=== PATIENT | female | born 1935 | race Two or more races ===

== ENCOUNTER 2017-05-09 08:54 | Emergency (ER) | payer OTHER, MEDICARE ==
[2017-05-09 09:11] VITALS: BP 127/64; PULSE 92; TEMP 98; BMI 21.2
--- NOTE | 2017-05-09 09:47 | PDOC ---
History of Present Illness - General Chief Complaint: Pain Stated Complaint: FOOT INJURY Time Seen by Provider: 05/09/17 09:27 History Source: Patient Exam Limitations: No Limitations - History of Present Illness Initial Comments: 05/09/17 10:20 was walking and tripoped/ inverted right ankle 4 days ago. Has used tylenol and frank wrap, but has persistent tenderness and ecchymoses. Has fractured that ankle with an ORIF 7 years ago. Denies numbness or tingling to foot or any other injury. 05/09/17 16:22 Occurred: reports: other (4 days ago) Severity: reports: mild Pain Location: reports: lower extremity (right ankle ) Method of Injury: Yes: fall Modifying Factors: improves with: cold therapy, pain medication Associated Symptoms (Fall): denies symptoms Past History - Travel Traveled outside of the country in the last 30 days: No Close contact w/someone who was outside of country & ill: No - Past Medical History Allergies/Adverse Reactions: Allergies Allergy/AdvReac Type Severity Reaction Status Date / Time Sulfa (Sulfonamide Allergy Mild Hives Verified 05/09/17 09:05 Antibiotics) Home Medications: Ambulatory Orders NK [No Known Home Medication] 05/09/17 Seizures: Yes Thyroid Disease: Yes - Surgical History Lung Surgery: Yes (lt breast) - Suicide/Smoking/Psychosocial Hx Smoking History: Former smoker Have you smoked in the past 12 months: No If you are a former smoker, when did you quit?: 65yrs Information on smoking cessation initiated: No Hx Alcohol Use: Yes (socially) Drug/Substance Use Hx: No Review of Systems - Review of Systems Able to Perform ROS?: Yes Is the patient limited [place] proficient: Yes Constitutional: Yes: See HPI. No: Symptoms Reported HEENTM: No: Symptoms Reported Respiratory: No: Symptoms reported Musculoskeletal: Yes: Symptoms Reported, See HPI, Joint Pain, Joint Swelling Integumentary: Yes: See HPI, Bruising Neurological: Yes: See HPI. No: Symptoms reported All Other Systems: Reviewed and Negative *Physical Exam - Vital Signs Last Vital Signs Temp Pulse Resp BP Pulse Ox 98 F 92 H 16 127/64 100 05/09/17 09:05 05/09/17 09:05 05/09/17 09:05 05/09/17 09:05 05/09/17 09:05 - Physical Exam General Appearance: Yes: Nourished, Appropriately Dressed, Apparent Distress, Mild Distress HEENT: positive: DAMI, Normal ENT Inspection, TMs Normal, Pharynx Normal Neck: positive: Supple. negative: Tender Extremity: positive: Normal Capillary Refill, Swelling. negative: Normal Range of Motion (diminished secondary to tenderness to the lateral aspect) Integumentary: positive: Normal Color, Swelling (faint swelling to lateral aspect of right ankle, karuna no point tenderness to medial or lateral malleolus, negative fifth metatarsal or navicular pain,), Ecchymosis, Bruising Neurologic: positive: lease attendant II-XII NML intact, Fully Oriented, Alert, Normal Mood/ Affect, Normal Response, Motor Strength / ED Treatment Course - RADIOLOGY Radiology Studies Ordered: Category Date Time Status ANKLE-RIGHT [RAD] Stat Radiology 05/09/17 09:32 Ordered Progress Note - Progress Note Progress Note: Negative for fractures or hardware malfunction. Frank wrap was applied, patient will follow-up upon her return to [place] with her orthopedist. *DC/Admit/Observation/Transfer Diagnosis at time of Disposition: Ankle sprain Qualifiers: Encounter type: initial encounter Involved ligament of ankle: unspecified ligament Laterality: right Qualified Code(s): S93.401A - Sprain of unspecified ligament of right ankle, initial encounter - Discharge Dispostion Disposition: HOME Condition at time of disposition: Stable Admit: No - Referrals Referrals: Siddharth Loredo MD [Staff Physician] - - Patient Instructions Printed Discharge Instructions: DI for Ankle Sprain Additional Instructions: Rest, ice to area on and off for 15 minutes 4-6 times a day Avoid heavy lifting or exercise until pain and swelling is resolved or until further directed Keep area highly elevated to reduce swelling Use splints/Frank wrap as directed Followup with orthopedist in one to 2 days if not improving, if significantly improved may wait one week for followup with orthopedist May use ibuprofen 2-200 mg tablets every 6 hours as needed for pain
== END 2017-05-09 11:30 | disposition home or self-care (01) ==
LOC: JERFT 08:54
DX: S93.401A Sprain of unspecified ligament of right ankle, initial encounter (principal); X58.XXXA Exposure to other specified factors, initial encounter; Y93.89 Activity, other specified; Y92.9 Unspecified place or not applicable
CPT/HCPCS: 73610-TC-RT; 99281-25